=== PATIENT | male | born 1965 | race Hispanic/Latino ===

== ENCOUNTER 2019-03-26 23:44 | Emergency (ER) | payer MEDICARE ==
[2019-03-27 00:15] VITALS: TEMP 98.4; O2SAT 98
--- NOTE | 2019-03-27 00:17 | ED.PDOC ---
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 HE TOOK A SHOWER IN A MOTEL ATE DINNER HAD A COUPLE OF DRINKS WENT TO BED AND STARTED EXPERIENCING RIGHT 4 5 FINGERS CRAMPING WHICH DOES HAPPEN TIME TO TIME SINCE A MAJOR SURGERY TO THE UPPER BACK ABSCESS 5-6 YEARS AGO HE WAS THEN A OBESE PERSON 350 POUNDS AND HAD DM AND HAD DEVELOPED A ABSCESS ON TH UPPER BACK HE HAS NO NECK PAIN NO HEADACHE NO TIA OR STOKE IN THE PAST NO SLURRED SPEECH NO FACIAL DROOP NO GAIT DIFFICULTY NO MOTOR WEAKNESS HE IS ALERT AMBULATED TO THE ER ORIENTED TO PLACE TIME AND PERSON CRANIAL NERVES 2-12 NORMAL NO PRONAOR DRIFT NO MOTOR OR SENSORY DEFICIT EQUAL BILATERALLY HEART SOUNDS NORMAL LUNGS CLEAR ABD SOFT NON TENDER - History of Present Illness Timing/Duration: 1 hour Severity: mild Improving Factors: nothing Worsening Factors: nothing Associated Symptoms: denies symptoms Review of Systems - Review of Systems Constitutional: States: no symptoms reported EENTM: States: no symptoms reported Respiratory: States: no symptoms reported Cardiology: States: no symptoms reported Gastrointestinal/Abdominal: States: no symptoms reported Genitourinary: States: no symptoms reported Musculoskeletal: States: no symptoms reported Skin: States: no symptoms reported Neurological: States: no symptoms reported Endocrine: States: no symptoms reported Hematologic/Lymphatic: States: no symptoms reported Family Medical History - Family History Father Family History: Unknown Living Status: Unknown Physical Exam - Physical Exam General Appearance: Alert, Comfortable Eye Exam: bilateral normal Ears, Nose, Throat: hearing grossly normal, normal ENT inspection, normal pharynx Neck: non-tender, full range of motion, supple Respiratory: chest non-tender, lungs clear, normal breath sounds, no respiratory distress, no accessory muscle use, respiratory distress Cardiovascular/Chest: normal peripheral pulses, regular rate, rhythm, no edema, no gallop, no JVD, no murmur Peripheral Pulses: radial,right: 2+, radial,left: 2+, femoral,right: 2+, femoral,left: 2+, popliteal,right: 2+, popliteal,left: 2+ Gastrointestinal/Abdominal: normal bowel sounds, non tender, soft Back Exam: normal inspection, no vertebral tenderness Extremity: normal range of motion, non-tender 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 as tested, no motor/sensory deficits, normal mood/affect, oriented x 3 DTR: 3+: Biceps, left, Biceps, right, Triceps, left, Triceps, right, Brachioradialis, left, Brachioradialis, right, Achilles, left, Achilles, right, Patellar, left, Patellar, right Skin Exam: normal color, warm/dry Lymphatic: no adenopathy Progress - Results/Orders Results/Orders: Laboratory Tests 03/27/19 03/27/19 00:19 00:19 WBC 9.8 RBC 4.62 L Hgb 15.6 Hct 47.1 MCV 102.0 H MCH 33.8 H MCHC 33.2 RDW 14.3 Plt Count 234 MPV 8.9 Absolute Neuts (auto) 6.50 Absolute Lymphs (auto) 2.10 Absolute Monos (auto) 0.80 Absolute Eos (auto) 0.30 Absolute Basos (auto) 0.10 Neutrophils % 66.6 Lymphocytes % 21.3 Monocytes % 8.1 Eosinophils % 3.0 Basophils % 1.0 Sodium 140 Potassium 4.2 Chloride 105 Carbon Dioxide 22 Anion Gap 17.2 BUN 20 H Creatinine 1.17 BUN/Creatinine Ratio 17.1 Random Glucose 95 Serum Osmolality 281.8 Calcium 9.4 Total Bilirubin 0.6 AST 17 ALT 14 Alkaline Phosphatase 100 Serum Total Protein 8.5 H Albumin 4.3 Globulin 4.2 H Albumin/Globulin Ratio 1.0 L Departure - Departure Clinical Impression: Neuropathy, Gastric bypass status for obesity Time of Disposition: 01:11 Disposition: Discharge to Home or Self Care Condition: Fair Diet: resume usual diet
--- NOTE | 2019-03-27 01:01 | CT ---
EXAM DESCRIPTION: CT of the head without contrast CLINICAL HISTORY: RIGHT ARM NUMBNESS / FOCAL SEIZURES COMPARISON: None available TECHNIQUE: Axial CT of the head obtained from the skull apex to the skull base without contrast. FINDINGS: No acute intracranial hemorrhage identified. No mass, mass effect, shift of the midline, abnormal extra-axial fluid collection or CT evidence of acute ischemic change identified. The ventricular system is not enlarged. Scattered areas of hypodensity throughout the supratentorial white matter are nonspecific and may be related to chronic small vessel ischemic change. Mucosal thickening of the paranasal sinuses. Mastoid air cells are well aerated. Mastoid air cells are well aerated. No skull fracture identified. Visualized orbits and globes are unremarkable. Atherosclerotic calcification of the intracranial internal carotid arteries. DLP: 967.47 mGy-cm IMPRESSION: 1. No acute intracranial abnormality by CT criteria. 2. If there is concern for acute ischemic change or seizure focus MRI would provide additional characterization. This exam was performed according to our departmental dose-optimization program, which includes automated exposure control, adjustment of the mA and/or kV according to patient size and/or use of iterative reconstruction technique. Electronically signed by: Abundio Gonzalez 03/27/2019 12:59 AM CDT
[2019-03-27 01:26] VITALS: BP 129/85
== END 2019-03-27 01:26 | disposition home or self-care (01) ==
LOC: ER 23:44
DX: G62.9 Polyneuropathy, unspecified (principal); Z98.84 Bariatric surgery status; Z98.890 Other specified postprocedural states